=== PATIENT | male | born 1935 | race Caucasian/White ===

== ENCOUNTER → 2017-02-04 | Outpatient (CLI) | payer MEDICARE, BC ==
--- NOTE | 2017-02-04 17:55 | US ---
EXAMINATION TYPE: US venous doppler duplex LE RT DATE OF EXAM: 02/04/2017 5:37 PM COMPARISON: No previous CLINICAL HISTORY: Edema R06.0, Pain M79.604. Right leg edema, right calf pain SIDE PERFORMED: Right VESSELS IMAGED: External Iliac Vein (EIV) Common Femoral Vein Deep Femoral Vein Greater Saphenous Vein * Femoral Vein Popliteal Vein Small Saphenous Vein * Proximal Calf Veins (* superficial vessels) Right Leg: Appears negative for DVT IMPRESSION: Normal exam. No evidence of deep venous thrombosis in the right leg.
== END ==
LOC: RADUSWWP 17:19
PROVIDERS: ATTEND Family Medicine
DX: M79.604 Pain in right leg (principal); R60.0 Localized edema

== ENCOUNTER 2017-07-20 15:22 | Emergency (ER) | payer MEDICARE, BC ==
[2017-07-20 15:26] VITALS: BP 137/69; PULSE 72; RESP 20; TEMP 98.1
[2017-07-20] MEDS ORDERED: KETOROLAC 60 MG/2 ML VIAL IM STA (15:50)
[2017-07-20] MEDS ORDERED: HYDROmorphone 1 MG/ML 1 ML SYRINGE IM STA (15:50)
--- NOTE | 2017-07-20 15:54 | ED ---
Extremity Problem HPI - General Chief complaint: Extremity Problem,Nontraumatic Stated complaint: Wrist Pain Time Seen by Provider: 07/20/17 15:41 Source: patient Mode of arrival: ambulatory Limitations: no limitations - History of Present Illness Initial comments: This 82-year-old white male presents complaining of some pain to his left wrist and left hand. He states that it started this past evening. He states that it is very severe and worse with any wrist movement. He denies any actual injury or trauma. He denies any previous similar incidents. She does not have a history of gout. No fever or chills. No other complaints or modifying factors. - Related Data Home Medications Medication Instructions Recorded Confirmed ALPRAZolam [Xanax] 1 tab PO BID 04/18/14 12/18/14 Albuterol Nebulized [Ventolin 2.5 mg INHALATION Q4H 04/18/14 12/18/14 Nebulized] Aspirin 81 mg PO DAILY 04/18/14 12/18/14 Doxazosin [Cardura] 4 mg PO HS 04/18/14 12/18/14 Insulin Glulisine [Apidra Solostar] 3 units SQ TID 04/18/14 12/18/14 Zolpidem [Ambien] 10 mg PO HS PRN 04/18/14 12/18/14 Atorvastatin [Lipitor] 20 mg PO DAILY 07/20/17 07/20/17 Cholecalciferol [Vitamin D3] 1,000 unit PO DAILY 07/20/17 07/20/17 Previous Rx's Medication Instructions Recorded Hydrocodone/Acetaminophen [[place] 1 - 2 each PO Q4HR PRN #20 tab 07/20/17 5-325] predniSONE 20 mg PO BID #10 tab 07/20/17 Allergies Allergy/AdvReac Type Severity Reaction Status Date / Time isosorbide mononitrate Allergy Unknown Verified 07/20/17 15:56 [From Ismo] Review of Systems ROS Statement: Those systems with pertinent positive or pertinent negative responses have been documented in the HPI. ROS Other: All systems not noted in ROS Statement are negative. Past Medical History Past Medical History: Asthma, Cancer, Diabetes Mellitus, Hyperlipidemia, Memory Impairment, Myocardial Infarction (MD), Osteoarthritis (OA), Prostate Disorder, Pulmonary Embolus (PE) Additional Past Medical History / Comment(s): prostate cancer, constipation, hemorrhoids, PE 1990, bronchitis Last Myocardial Infarction Date:: 1989 History of Any Multi-Drug Resistant Organisms: MRSA Date of last positivie culture/infection: 07/15/2012 MDRO Source:: groin Past Surgical History: Appendectomy, Back Surgery, Coronary Bypass/CABG, Heart Catheterization With Stent, Hernia Repair Additional Past Surgical History / Comment(s): lt cataract Past Anesthesia/Blood Transfusion Reactions: No Reported Reaction Date of Last Stent Placement:: 1999 Past Psychological History: Depression Smoking Status: Former smoker Past Alcohol Use History: None Reported Past Drug Use History: None Reported - Past Family History Father Family Medical History: Cancer Brother(s) Family Medical History: Cancer General Exam Limitations: no limitations General appearance: alert Extremities exam: Present: tenderness (There is significant tenderness noted to the wrist area as well as the proximal to mid hand on dorsal aspect. There is significant pain with any range of motion of the left wrist.), joint swelling ( There is some mild tenderness and slight swelling around the left wrist.) Neurological exam: Present: alert, oriented X3. Absent: motor sensory deficit Skin exam: Present: intact. Absent: rash Course Vital Signs 07/20/17 15:24 Temperature 98.1 F Pulse Rate 72 Respiratory 20 Rate Blood Pressure 137/69 O2 Sat by Pulse 96 Oximetry Medical Decision Making - Medical Decision Making The patient was seen and examined. X-rays taken of the left wrist and left hand. He also receives Dilaudid 1 mg IM and Toradol 60 mg IM. The x-ray shows some degenerative changes but no fracture. There is evidence of osteopenia as well. He is placed in a 3 inch Ortho-Glass custom molded splint by myself. There is excellent post-splint neurovascular status noted. He is feeling improved on recheck after the medications. Is felt as though he is stable for discharge. This very likely could be related to gout. Disposition Clinical Impression: Left wrist pain, Left hand pain, Gout attack, Arthritis Disposition: HOME SELF-CARE Condition: Good Instructions: Gout (ED), Osteoarthritis (ED), Splint Care (ED) Prescriptions: Hydrocodone/Acetaminophen [[place] 5-325] 1 - 2 each PO Q4HR PRN #20 tab PRN Reason: Pain predniSONE 20 mg PO BID #10 tab Referrals: Manuel Parrish DO [Primary Care Provider] - 1-2 days Time of Disposition: 16:35
--- NOTE | 2017-07-20 16:10 | XR ---
EXAMINATION TYPE: XR wrist complete LT DATE OF EXAM: 07/20/2017 COMPARISON: NONE HISTORY: Pain redness TECHNIQUE: Three-view left wrist FINDINGS: No acute displaced fractures are evident. There is diffuse soft tissue swelling present. Viky int spaces appear preserved. Structures may have slight osteopenia. IMPRESSION: 1. Soft tissue swelling. 2. Follow-up exams can be performed 7-10 days from acute trauma for continued pain.
--- NOTE | 2017-07-20 16:11 | XR ---
EXAMINATION TYPE: XR hand complete LT DATE OF EXAM: 07/20/2017 COMPARISON: NONE HISTORY: Pain swelling TECHNIQUE: Three-view left hand FINDINGS: Structures appear osteoporotic. There is soft tissue swelling over the wrist and over the d orsum of the hand. No acute fractures are evident. Degenerative joint changes are at the proximal dis shanita interphalangeal joint spaces. IMPRESSION: 1. Degenerative joint changes. 2. Osteoporosis. This could be confirmed with bone density. 3. Soft tissue swelling dorsum of hand. 4. Follow-up exams would be recommended 7-10 days from acute trauma for continued pain.
== END 2017-07-20 16:45 | disposition home or self-care (01) ==
LOC: EC 15:22
DX: M10.032 Idiopathic gout, left wrist (principal); J45.909 Unspecified asthma, uncomplicated; E11.9 Type 2 diabetes mellitus without complications; E78.5 Hyperlipidemia, unspecified; I25.2 Old myocardial infarction; M19.90 Unspecified osteoarthritis, unspecified site; N42.9 Disorder of prostate, unspecified; F32.9 Major depressive disorder, single episode, unspecified; Z85.46 Personal history of malignant neoplasm of prostate; Z86.711 Personal history of pulmonary embolism; Z87.891 Personal history of nicotine dependence; Z79.82 Long term (current) use of aspirin; Z79.899 Other long term (current) drug therapy; Z79.4 Long term (current) use of insulin; Z88.8 Allergy status to other drugs, medicaments and biological substances
CPT/HCPCS: 73110; 73130; 99283; 96372 ×2; J1885; J1170